=== PATIENT | female | born 1995 | race Caucasian/White ===

== ENCOUNTER 2018-04-10 15:01 | Inpatient (IN) | payer BC ==
[2018-04-10] MEDS ORDERED: Carboprost Tromethamine 250 MCG/1 ML Amp IM PRN (16:54)
[2018-04-10] MEDS ORDERED: Lidocaine 1% 50 ML MDV INJECT PRN (16:54)
[2018-04-10] MEDS ORDERED: Methylergonovine 0.2 MG/1 ML Amp IM PRN (16:54)
[2018-04-10] MEDS ORDERED: Misoprostol 200 MCG Tab PO PRN (16:54)
[2018-04-10] MEDS ORDERED: Nalbuphine 10 MG/1 ML Vial IVPUSH PRN (16:54)
[2018-04-10] MEDS ORDERED: Sodium Chloride 0.9% 2.5 ML Syringe FLUSH PRN (16:54)
[2018-04-10] MEDS ORDERED: Tranexamic Acid 1,000 MG in Sodium Chloride 0.9% 100 ML IV PRN (16:54)
[2018-04-10] MEDS ORDERED: Water For Irrigation,Sterile 1,000 ML Container IRR PRN (16:54)
[2018-04-10] MEDS ORDERED: Sodium Chloride 0.9% 10 ML Syringe FLUSH PRN (16:54)
[2018-04-10] MEDS ORDERED: Butorphanol 1 MG/ML SDV IVPUSH PRN (16:54)
[2018-04-10] MEDS ORDERED: Oxytocin/0.9 % Sodium Chloride 30 UNIT/500 ML BAG IV SCH ×2 (17:00→22:30)
[2018-04-10] MEDS: Lactated Ringers 1,000 ML IV SCH ×2 (19:30→20:15)
[2018-04-10] MEDS ORDERED: Ropivacaine 0.2% 2 MG/ML 20 ML SDV ONE (19:40)
--- NOTE | 2018-04-10 20:10 | PCM.PREANE ---
Preanesthetic Assessment - Procedure Proposed Procedure: labor epidural - Anesthesia/Transfusion/Family Hx Anesthesia History: Prior Anesthesia Without Reaction Family History of Anesthesia Reaction: No Transfusion History: No Prior Transfusion(s) - Review of Systems Other: Reports: None - Physical Assessment Height: 5 ft 4.5 in Weight: 97.522 kg Mental Status: Alert & Oriented x3 Dentition: Reports: Normal Dentition ROM/Head Extension: Full - Lab Values: Laboratory Last Values WBC 12.98 K/uL (4.0-11.0) H 04/10/18 17:26 RBC 4.30 M/uL (4.30-5.90) 04/10/18 17:26 Hgb 12.4 g/dL (12.0-16.0) 04/10/18 17:26 Hct 36.3 % (36.0-46.0) 04/10/18 17:26 MCV 84.4 fL (80.0-98.0) 04/10/18 17:26 MCH 28.8 pg (27.0-32.0) 04/10/18 17:26 MCHC 34.2 g/dL (31.0-37.0) 04/10/18 17:26 RDW Std Deviation 45.8 fl (28.0-62.0) 04/10/18 17:26 RDW Coeff of [place] 15 % (11.0-15.0) 04/10/18 17:26 Plt Count 348 K/uL (150-400) 04/10/18 17:26 MPV 10.60 fL (7.40-12.00) 04/10/18 17:26 Nucleated RBC % 0.0 /100WBC 04/10/18 17:26 Nucleated RBCs # 0 K/uL 04/10/18 17:26 Urine Color YELLOW 04/10/18 16:40 Urine Appearance CLEAR 04/10/18 16:40 Urine pH 6.0 (5.0-8.0) 04/10/18 16:40 Ur Specific [place] 1.015 (1.001-1.035) 04/10/18 16:40 Urine Protein NEGATIVE mg/dL (NEGATIVE) 04/10/18 16:40 Urine Glucose (UA) NEGATIVE mg/dL (NEGATIVE) 04/10/18 16:40 Urine Ketones NEGATIVE mg/dL (NEGATIVE) 04/10/18 16:40 Urine Occult Blood TRACE-INTACT (NEGATIVE) 04/10/18 16:40 Urine Nitrite NEGATIVE (NEGATIVE) 04/10/18 16:40 Urine Bilirubin NEGATIVE (NEGATIVE) 04/10/18 16:40 Urine Urobilinogen 0.2 EU/dL (<2.0) 04/10/18 16:40 Ur Leukocyte Esterase TRACE (NEGATIVE) 04/10/18 16:40 Blood Type A POSITIVE 04/10/18 17:26 Antibody Screen NEGATIVE 04/10/18 17:26 - Allergies Allergies/Adverse Reactions: Allergies Allergy/AdvReac Type Severity Reaction Status Date / Time amoxicillin [From Augmentin] Allergy Hives Verified 12/29/17 09:12 clavulanic acid Allergy Hives Verified 12/29/17 09:12 [From Augmentin] - Blood Blood Available: Yes Product(s) Available: PRBC - Acknowledgements Anesthesia Type Planned: Epidural Pt an Appropriate Candidate for the Planned Anesthesia: Yes Alternatives and Risks of Anesthesia Discussed w Pt/Guardian: Yes Pt/Guardian Understands and Agrees with Anesthesia Plan: Yes PreAnesthesia Questionnaire HEENT History: Reports: Impaired Vision Cardiovascular History: Reports: None Respiratory History: Reports: None Gastrointestinal History: Reports: None Genitourinary History: Reports: None 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: , 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 Musculoskeletal History: Reports: None Neurological History: Reports: None Psychiatric History: Reports: ADHD, Anxiety, Depression Endocrine/Metabolic History: Reports: None Hematologic History: Reports: None Immunologic History: Reports: None Oncologic (Cancer) History: Reports: None Dermatologic History: Reports: None - Infectious Disease History Infectious Disease History: Reports: None - Past Surgical History HEENT Surgical History: Reports: Other (See Below) Other HEENT Surgeries/Procedures: wisdom teeth extractions GI Surgical History: Reports: Appendectomy Female Surgical History: Reports: None - SUBSTANCE USE Smoking Status *Q: Former Smoker Tobacco Use Within Last Twelve Months: No Second Hand Smoke Exposure: No Recreational Drug Use History: No - HOME MEDS Home Medications: Home Meds Pnv with Ca,No.72/Iron/Fa [Pnv Plus Multivit Tab] 1 tab PO DAILY [History] busPIRone [Buspar] 5 mg PO BID 12/29/17 [History] - CURRENT (IN HOUSE) MEDS Current Meds: Current Medications Butorphanol Tartrate (Stadol) 1 mg IVPUSH Q1H PRN PRN Reason: Pain Carboprost Tromethamine (Hemabate Ds) 250 mcg IM ASDIRECTED PRN PRN Reason: Post Hemorrhage Lactated Ringer's (Ringers, Lactated) 1,000 mls @ 150 mls/hr IV ASDIRECTED DEANGELO Oxytocin/Sodium Chloride (Oxytocin 30 Unit/500 Ml-Ns) 30 unit in 500 mls @ 500 mls/hr IV TITRATE DEANGELO Tranexamic Acid 1,000 mg/ (Sodium Chloride) 110 mls @ 660 mls/hr IV ONETIME PRN PRN Reason: Bleeding Lidocaine HCl (Xylocaine 1%) 50 ml INJECT .ONCE PRN PRN Reason: Laceration repair Methylergonovine Maleate (Methergine) 0.2 mg IM ASDIRECTED PRN PRN Reason: Post Hemorrhage Misoprostol (Cytotec) 200 mcg PO .ONCE PRN PRN Reason: Post Hemorrhage Nalbuphine HCl (Nubain) 10 mg IVPUSH Q1H PRN PRN Reason: Pain (severe 7-10) Sodium Chloride (Saline Flush) 10 ml FLUSH ASDIRECTED PRN PRN Reason: Keep Vein Open Sodium Chloride (Saline Flush) 2.5 ml FLUSH ASDIRECTED PRN PRN Reason: Keep Vein Open Sterile Water (Sterile Water For Irrigation) 1,000 ml IRR ASDIRECTED PRN PRN Reason: delivery Discontinued Medications Fentanyl/Bupivacaine HCl (Qqaoasrw-Tnvcg-Xf 2 Mcg/Ml-0.125%) Confirm Administered Dose 100 mls @ as directed EP .STK-MED ONE Stop: 04/10/18 19:41 Ropivacaine (Naropin 0.2%) Confirm Administered Dose 20 ml .ROUTE .STK-MED ONE Stop: 04/10/18 19:41
[2018-04-10 23:14] LABS: CHLORIDE,CL 100 mmol/L (98-107); SODIUM,NA 135 mmol/L (136-145)
[2018-04-11] MEDS: Lactated Ringers 1,000 ML IV SCH (03:39)
[2018-04-11] MEDS ORDERED: Docusate Sodium 100 MG Cap PO PRN (06:50)
[2018-04-11] MEDS ORDERED: Witch Hazel Medicated Pads 40/Jar TOP PRN (06:50)
[2018-04-11] MEDS ORDERED: Lanolin 100% Cream 7 GM Tube TOP PRN (06:50)
[2018-04-11] MEDS ORDERED: oxyCODONE 5 MG Tab PO PRN (06:50)
[2018-04-11] MEDS ORDERED: Acetaminophen 500 MG Tab PO PRN ×2 (06:50)
[2018-04-11] MEDS ORDERED: Bisacodyl 10 MG Supp RECTAL PRN (06:50)
[2018-04-11] MEDS ORDERED: Benzocaine/Menthol 20%-0.5% Spray 78 GM Cannister TOP PRN (06:50)
[2018-04-11] MEDS ORDERED: Ibuprofen 400 MG Tab PO PRN (06:50)
--- NOTE | 2018-04-11 06:57 | PCM.DEL ---
L & D Note - General Info Date of Service: 04/11/18 Mother's Due Date: 04/10/18 - Delivery Note Labor: Augmented by Oxytocin Delivery Outcome: Livebirth Presentation: Right Occiput Anterior (TIERA) Nuchal Cord: None Anesthesia Type: Local, Epidural Anesthetic: Lidocaine (Xylocaine) 1% Plain Local Anesthetic Volume: 5cc Amniotic Fluid Description: Clear Episiotomy Type: None Laceration: 2nd Degree Suture type: Other (monocryl) Suture size: 2-0 Placenta: Intact Cord: 3 Vessels Estimated Blood Loss: 350 [place]: Suctioned Score 1 min: 9 Score 5 min: 9 Delivery Comments (Free Text/Narrative):: Live male delivered at 554am , 9/9, weight 8lb 6oz 2nd degree laceration - General Info Date of Service: 04/11/18 - Patient Data Weight - Most Recent: 97.522 kg Lab Results Last 24 Hours: Laboratory Results - last 24 hr 04/10/18 04/10/18 04/10/18 Range/Units 16:40 17:26 17:26 WBC 12.98 H (4.0-11.0) K/uL RBC 4.30 (4.30-5.90) M/uL Hgb 12.4 (12.0-16.0) g/dL Hct 36.3 (36.0-46.0) % MCV 84.4 (80.0-98.0) fL MCH 28.8 (27.0-32.0) pg MCHC 34.2 (31.0-37.0) g/dL RDW Std Deviation 45.8 (28.0-62.0) fl RDW Coeff of [place] 15 (11.0-15.0) % Plt Count 348 (150-400) K/uL MPV 10.60 (7.40-12.00) fL Nucleated RBC % 0.0 /100WBC Nucleated RBCs # 0 K/uL Sodium (136-145) mmol/L Potassium (3.5-5.1) mmol/L Chloride (98-107) mmol/L Carbon Dioxide (21.0-32.0) mmol/L BUN (7.0-18.0) mg/dL Creatinine (0.6-1.0) mg/dL Est Cr Clr Drug Dosing mL/min Estimated GFR (MDRD) ml/min Glucose (74-106) mg/dL Uric Acid (2.6-7.2) mg/dL Calcium (8.5-10.1) mg/dL Total Bilirubin (0.2-1.0) mg/dL AST (15-37) IU/L ALT (14-63) IU/L Alkaline Phosphatase (46-116) U/L Total Protein (6.4-8.2) g/dL Albumin (3.4-5.0) g/dL Globulin (2.0-3.5) g/dL Albumin/Globulin Ratio (1.3-2.8) Urine Color YELLOW Urine Appearance CLEAR Urine pH 6.0 (5.0-8.0) Ur Specific [place] 1.015 (1.001-1.035) Urine Protein NEGATIVE (NEGATIVE) mg/dL Urine Glucose (UA) NEGATIVE (NEGATIVE) mg/dL Urine Ketones NEGATIVE (NEGATIVE) mg/dL Urine Occult Blood TRACE-INTACT (NEGATIVE) Urine Nitrite NEGATIVE (NEGATIVE) Urine Bilirubin NEGATIVE (NEGATIVE) Urine Urobilinogen 0.2 (<2.0) EU/dL Ur Leukocyte Esterase TRACE (NEGATIVE) Blood Type A POSITIVE Antibody Screen NEGATIVE 04/10/18 Range/Units 22:46 WBC (4.0-11.0) K/uL RBC (4.30-5.90) M/uL Hgb (12.0-16.0) g/dL Hct (36.0-46.0) % MCV (80.0-98.0) fL MCH (27.0-32.0) pg MCHC (31.0-37.0) g/dL RDW Std Deviation (28.0-62.0) fl RDW Coeff of [place] (11.0-15.0) % Plt Count (150-400) K/uL MPV (7.40-12.00) fL Nucleated RBC % /100WBC Nucleated RBCs # K/uL Sodium 135 L (136-145) mmol/L Potassium 4.0 (3.5-5.1) mmol/L Chloride 100 (98-107) mmol/L Carbon Dioxide 22.0 (21.0-32.0) mmol/L BUN 10 (7.0-18.0) mg/dL Creatinine 0.9 (0.6-1.0) mg/dL Est Cr Clr Drug Dosing 84.25 mL/min Estimated GFR (MDRD) > 60.0 ml/min Glucose 88 (74-106) mg/dL Uric Acid 6.9 (2.6-7.2) mg/dL Calcium 9.4 (8.5-10.1) mg/dL Total Bilirubin 0.4 (0.2-1.0) mg/dL AST 26 (15-37) IU/L ALT 29 (14-63) IU/L Alkaline Phosphatase 136 H (46-116) U/L Total Protein 7.0 (6.4-8.2) g/dL Albumin 2.6 L (3.4-5.0) g/dL Globulin 4.4 H (2.0-3.5) g/dL Albumin/Globulin Ratio 0.6 L (1.3-2.8) Urine Color Urine Appearance Urine pH (5.0-8.0) Ur Specific [place] (1.001-1.035) Urine Protein (NEGATIVE) mg/dL Urine Glucose (UA) (NEGATIVE) mg/dL Urine Ketones (NEGATIVE) mg/dL Urine Occult Blood (NEGATIVE) Urine Nitrite (NEGATIVE) Urine Bilirubin (NEGATIVE) Urine Urobilinogen (<2.0) EU/dL Ur Leukocyte Esterase (NEGATIVE) Blood Type Antibody Screen Med Orders - Current: Current Medications Acetaminophen (Tylenol Extra Strength) 500 mg PO Q4H PRN PRN Reason: Pain Acetaminophen (Tylenol Extra Strength) 1,000 mg PO Q4H PRN PRN Reason: Pain Benzocaine/Menthol (Dermoplast Pain Relief 20%-0.5% [place]) 78 gm TOP ASDIRECTED PRN PRN Reason: Perineal Comfort Measure Bisacodyl (Dulcolax) 10 mg RECTAL .ONCE PRN PRN Reason: Constipation Carboprost Tromethamine (Hemabate Ds) 250 mcg IM ASDIRECTED PRN PRN Reason: Post Hemorrhage Docusate Sodium (Colace) 100 mg PO BID PRN PRN Reason: Constipation Emollient Ointment (Lansinoh Hpa) 0 gm TOP ASDIRECTED PRN PRN Reason: Sore Nipples Lactated Ringer's (Ringers, Lactated) 1,000 mls @ 150 mls/hr IV ASDIRECTED DEANGELO Last Admin: 04/11/18 03:39 Dose: 150 mls/hr Oxytocin/Sodium Chloride (Oxytocin 30 Unit/500 Ml-Ns) 30 unit in 500 mls @ 500 mls/hr IV TITRATE DEANGELO Last Admin: 04/11/18 06:26 Dose: 999 mls/hr Tranexamic Acid 1,000 mg/ (Sodium Chloride) 110 mls @ 660 mls/hr IV ONETIME PRN PRN Reason: Bleeding Oxytocin/Sodium Chloride (Oxytocin 30 Unit/500 Ml-Ns) 30 unit in 500 mls @ 2 mls/hr IV TITRATE DEANGELO; Protocol Last Infusion: 04/11/18 05:55 Dose: 999 mls/hr Ibuprofen (Motrin) 400 mg PO Q4H PRN PRN Reason: Pain Ibuprofen (Motrin) 800 mg PO Q6H PRN PRN Reason: Pain Lidocaine HCl (Xylocaine 1%) 50 ml INJECT .ONCE PRN PRN Reason: Laceration repair Last Admin: 04/11/18 06:09 Dose: 50 ml Methylergonovine Maleate (Methergine) 0.2 mg IM ASDIRECTED PRN PRN Reason: Post Hemorrhage Misoprostol (Cytotec) 200 mcg PO .ONCE PRN PRN Reason: Post Hemorrhage Oxycodone HCl (Oxycodone) 5 mg PO Q2H PRN PRN Reason: Pain Sodium Chloride (Saline Flush) 10 ml FLUSH ASDIRECTED PRN PRN Reason: Keep Vein Open Sodium Chloride (Saline Flush) 2.5 ml FLUSH ASDIRECTED PRN PRN Reason: Keep Vein Open Sterile Water (Sterile Water For Irrigation) 1,000 ml IRR ASDIRECTED PRN PRN Reason: delivery Last Admin: 04/11/18 06:09 Dose: 1,000 ml Witch Denise (Tucks) 1 pad TOP ASDIRECTED PRN PRN Reason: comfort care Discontinued Medications Butorphanol Tartrate (Stadol) 1 mg IVPUSH Q1H PRN PRN Reason: Pain Fentanyl/Bupivacaine HCl (Ylcbwvcv-Fxpjs-Jc 2 Mcg/Ml-0.125%) Confirm Administered Dose 100 mls @ as directed EP .STK-MED ONE Stop: 04/10/18 19:41 Last Admin: 04/10/18 21:19 Dose: Not Given Fentanyl/Bupivacaine HCl (Wskwsgnm-Rurxh-Ys 2 Mcg/Ml-0.125%) Confirm Administered Dose 100 mls @ as directed EP .STK-MED ONE Stop: 04/11/18 03:36 Last Admin: 04/11/18 06:23 Dose: Not Given Nalbuphine HCl (Nubain) 10 mg IVPUSH Q1H PRN PRN Reason: Pain (severe 7-10) Ropivacaine (Naropin 0.2%) Confirm Administered Dose 20 ml .ROUTE .STK-MED ONE Stop: 04/10/18 19:41 Last Admin: 04/10/18 21:19 Dose: Not Given - Problem List & Annotations (1) Vaginal delivery SNOMED Code(s): 414268024 Code(s): O80 - ENCOUNTER FOR FULL-TERM UNCOMPLICATED DELIVERY Status: Acute - Problem List Review Problem List Initiated/Reviewed/Updated: Yes - My Orders Last 24 Hours: My Active Orders 04/10/18 22:30 Oxytocin/0.9 % Sodium Chloride [Oxytocin 30 Unit/500 ML-NS] 30 unit in 500 ml IV TITRATE 04/11/18 06:50 Patient Status [ADT] Routine May Shower [RC] ASDIRECTED Up ad [place] [RC] ASDIRECTED Vital Signs [RC] PER UNIT ROUTINE Acetaminophen [Tylenol Extra Strength] 1,000 mg PO Q4H PRN Acetaminophen [Tylenol Extra Strength] 500 mg PO Q4H PRN Benzocaine/Menthol [Dermoplast Pain Relief 20%-0.5% [place]] 78 gm TOP ASDIRECTED PRN Bisacodyl [Dulcolax] 10 mg RECTAL .ONCE PRN Docusate Sodium [Colace] 100 mg PO BID PRN Ibuprofen [Motrin] 400 mg PO Q4H PRN Ibuprofen [Motrin] 800 mg PO Q6H PRN Lanolin [Lansinoh HPA] See Dose Instructions TOP ASDIRECTED PRN Witch Denise [Tucks] 1 pad TOP ASDIRECTED PRN oxyCODONE 5 mg PO Q2H PRN Assess Lochia [WOMSER] Per Unit Routine Assess Uterine Involution [WOMSER] Per Unit Routine Peripheral IV Discontinue [OM.PC] Routine Resuscitation Status Routine 04/12/18 05:11 HEMOGLOBIN/HEMATOCRIT,HH [HEME] Timed
--- NOTE | 2018-04-11 07:44 | PCM48HPAN ---
Post Anesthesia Note - EVALUATION WITHIN 48HRS OF ANESTHETIC Vital Signs in Normal Range: Yes Patient Participated in Evaluation: Yes Respiratory Function Stable: Yes Airway Patent: Yes Cardiovascular Function Stable: Yes Hydration Status Stable: Yes Pain Control Satisfactory: Yes Nausea and Vomiting Control Satisfactory: Yes Mental Status Recovered: Yes
[2018-04-11] MEDS: Ibuprofen 800 MG Tab PO PRN ×3 (10:56→22:10)
[2018-04-12] MEDS: Ibuprofen 800 MG Tab PO PRN ×2 (03:56→10:01)
--- NOTE | 2018-04-12 06:14 | OR ---
SURGEON: ADELINE STRANGE DATE OF PROCEDURE: PREOPERATIVE DIAGNOSES: A 23-year-old, G2, P0-0-1-0 at 40 weeks and 1 day, admitted in labor. POSTOPERATIVE DIAGNOSES: A 23-year-old, G2, P0-0-1-0 at 40 weeks and 1 day, admitted in labor. ESTIMATED BLOOD LOSS: 350. PROCEDURE: Normal spontaneous vaginal delivery and repair of second-degree perineal laceration. ANESTHESIA: Epidural local. FINDING: Live male , delivered at 5:54 a.m. score was 9 and 9. Weight is 8lb 6oz BRIEF HISTORY ABOUT THE PATIENT: A 23-year-old, G2, P0-0-1-0 at 40 weeks and 1 day, who came in complaining of contractions. When she came in, she was found to be 5 cm dilated. The patient made progress of labor to 7 cm,and remained the same for 2hrs , so IV Pitocin was started. With IV Pitocin started, the patient made normal labor progress and became fully dilated and she was encouraged to push. DESCRIPTION OF PROCEDURE: With the patient's good pushing effort, she delivered the head, followed by the anterior and posterior shoulder, then the infant's body. The infant was placed on the maternal abdomen. Delayed cord clamping was also observed. Cord blood gases were obtained. The placenta was then delivered via controlled cord traction. After delivery of the placenta, bimanual massage was done. Hemostasis was noted. The perineum was inspected. A second-degree left labial laceration was noted. The laceration was then infiltrated with 1% lidocaine and sutured with 2-0 Monocryl. The perineum was inspected again and hemostasis was noted. All instrument and pad count were correct x2. The patient tolerated the procedure well and was left in the labor and delivery room in stable condition. JACKIE DICKERSON /[id number] ARNAUD
--- NOTE | 2018-04-12 07:16 | PCM.PNPP ---
<Jeri Griffin - Last Filed: 04/12/18 07:52> - General Info Date of Service: 04/12/18 Subjective Update: 23 year old PPD#1 from vaginal delivery. Mild headache last night that has since resolved. Functional Status: Reports: Pain Controlled, Tolerating Diet, Ambulating, Urinating - Review of Systems General: Denies: Fever, Chills HEENT: Denies: Headaches, Visual Changes Pulmonary: Denies: Shortness of Breath, Pleuritic Chest Pain, Cough Cardiovascular: Denies: Chest Pain, Edema Gastrointestinal: Denies: Constipation, Diarrhea, Nausea, Vomiting Genitourinary: Denies: Dysuria, Frequency, Burning Musculoskeletal: Denies: Leg Pain Neurological: Denies: Dizziness, Headache - General Info Date of Service: 04/12/18 - Patient Data Vital Signs - Most Recent: Last Vital Signs Temp 36.7 C 04/12/18 05:00 Pulse 87 04/12/18 05:00 Resp 16 04/12/18 05:00 BP 115/79 04/12/18 05:00 Pulse Ox 97 04/12/18 05:00 Weight - Most Recent: 97.522 kg Lab Results - Last 24 Hours: Laboratory Results - last 24 hr 04/12/18 Range/Units 05:16 Hgb 9.4 L (12.0-16.0) g/dL Hct 28.1 L (36.0-46.0) % Med Orders - Current: Current Medications Acetaminophen (Tylenol Extra Strength) 500 mg PO Q4H PRN PRN Reason: Pain Last Admin: 04/11/18 19:39 Dose: 500 mg Acetaminophen (Tylenol Extra Strength) 1,000 mg PO Q4H PRN PRN Reason: Pain Benzocaine/Menthol (Dermoplast Pain Relief 20%-0.5% [place]) 78 gm TOP ASDIRECTED PRN PRN Reason: Perineal Comfort Measure Last Admin: 04/11/18 11:29 Dose: 78 gm Bisacodyl (Dulcolax) 10 mg RECTAL .ONCE PRN PRN Reason: Constipation Carboprost Tromethamine (Hemabate Ds) 250 mcg IM ASDIRECTED PRN PRN Reason: Post Hemorrhage Docusate Sodium (Colace) 100 mg PO BID PRN PRN Reason: Constipation Emollient Ointment (Lansinoh Hpa) 0 gm TOP ASDIRECTED PRN PRN Reason: Sore Nipples Last Admin: 04/11/18 11:27 Dose: 1 tube Lactated Ringer's (Ringers, Lactated) 1,000 mls @ 150 mls/hr IV ASDIRECTED DEANGELO Last Admin: 04/11/18 03:39 Dose: 150 mls/hr Oxytocin/Sodium Chloride (Oxytocin 30 Unit/500 Ml-Ns) 30 unit in 500 mls @ 500 mls/hr IV TITRATE DEANGELO Last Admin: 04/11/18 06:26 Dose: 999 mls/hr Tranexamic Acid 1,000 mg/ (Sodium Chloride) 110 mls @ 660 mls/hr IV ONETIME PRN PRN Reason: Bleeding Oxytocin/Sodium Chloride (Oxytocin 30 Unit/500 Ml-Ns) 30 unit in 500 mls @ 2 mls/hr IV TITRATE DEANGELO; Protocol Last Infusion: 04/11/18 05:55 Dose: 999 mls/hr Ibuprofen (Motrin) 400 mg PO Q4H PRN PRN Reason: Pain Ibuprofen (Motrin) 800 mg PO Q6H PRN PRN Reason: Pain Last Admin: 04/12/18 03:56 Dose: 800 mg Lidocaine HCl (Xylocaine 1%) 50 ml INJECT .ONCE PRN PRN Reason: Laceration repair Last Admin: 04/11/18 06:09 Dose: 50 ml Methylergonovine Maleate (Methergine) 0.2 mg IM ASDIRECTED PRN PRN Reason: Post Hemorrhage Misoprostol (Cytotec) 200 mcg PO .ONCE PRN PRN Reason: Post Hemorrhage Oxycodone HCl (Oxycodone) 5 mg PO Q2H PRN PRN Reason: Pain Sodium Chloride (Saline Flush) 10 ml FLUSH ASDIRECTED PRN PRN Reason: Keep Vein Open Sodium Chloride (Saline Flush) 2.5 ml FLUSH ASDIRECTED PRN PRN Reason: Keep Vein Open Sterile Water (Sterile Water For Irrigation) 1,000 ml IRR ASDIRECTED PRN PRN Reason: delivery Last Admin: 04/11/18 06:09 Dose: 1,000 ml Witch Denise (Tucks) 1 pad TOP ASDIRECTED PRN PRN Reason: comfort care Last Admin: 04/11/18 11:28 Dose: 1 pad Discontinued Medications Butorphanol Tartrate (Stadol) 1 mg IVPUSH Q1H PRN PRN Reason: Pain Fentanyl/Bupivacaine HCl (Bjieduuj-Wpeom-Py 2 Mcg/Ml-0.125%) Confirm Administered Dose 100 mls @ as directed EP .STK-MED ONE Stop: 04/10/18 19:41 Last Admin: 04/10/18 21:19 Dose: Not Given Fentanyl/Bupivacaine HCl (Ymzyomia-Cvpdm-Ae 2 Mcg/Ml-0.125%) Confirm Administered Dose 100 mls @ as directed EP .STK-MED ONE Stop: 04/11/18 03:36 Last Admin: 04/11/18 06:23 Dose: Not Given Nalbuphine HCl (Nubain) 10 mg IVPUSH Q1H PRN PRN Reason: Pain (severe 7-10) Ropivacaine (Naropin 0.2%) Confirm Administered Dose 20 ml .ROUTE .STK-MED ONE Stop: 04/10/18 19:41 Last Admin: 04/10/18 21:19 Dose: Not Given - Interaction Disposition, : Henry in Room with Family Infant Interaction: Holding Infant Feeding: Breastfed Infant; Nursed Well Support Person: - Recovery Exam Fundal Tone: Firm Fundal Level: 1 Fingerbreadths Below Umbilicus Fundal Placement: Midline Lochia Amount: Scant Lochia Color: Rubra/Red Perineum Description: Intact, Minimal Bruising/Swelling Episiotomy/Laceration: Approximated Bladder Status: Voiding Urinary Elimination: Voided - Exam General: Alert, Oriented, No Acute Distress HEENT: Pupils Equal, Pupils Reactive Lungs: Clear to Auscultation, Normal Respiratory Effort. No: Wheezing Cardiovascular: Regular Rate, Regular Rhythm, No Murmurs GI/Abdominal Exam: Normal Bowel Sounds, Soft, No Distention, No Mass. No: Guarding, Rebound Extremities: Normal Inspection, Normal Range of Motion, Non-Tender, No Pedal Edema, Normal Capillary Refill Skin: Warm, Dry, Intact Wound/Incisions: Healing Well Neurological: No New Focal Deficit Psy/Mental Status: Alert, Normal Affect, Normal Mood - Problem List Review Problem List Initiated/Reviewed/Updated: Yes - Assessment Assessment:: 23 year old PPD#1 s/p vaginal delivery. Recovering appropriately. - Plan Plan:: Discharge today Pain meds: acetaminophen, ibuprofen Followup: 6 weeks in clinic <Gabriela Ward - Last Filed: 04/12/18 08:16> - Patient Data Vital Signs - Most Recent: Last Vital Signs Temp 36.7 C 04/12/18 05:00 Pulse 87 04/12/18 05:00 Resp 16 04/12/18 05:00 BP 115/79 04/12/18 05:00 Pulse Ox 97 04/12/18 05:00 Lab Results - Last 24 Hours: Laboratory Results - last 24 hr 04/12/18 Range/Units 05:16 Hgb 9.4 L (12.0-16.0) g/dL Hct 28.1 L (36.0-46.0) % Med Orders - Current: Current Medications Acetaminophen (Tylenol Extra Strength) 500 mg PO Q4H PRN PRN Reason: Pain Last Admin: 04/11/18 19:39 Dose: 500 mg Acetaminophen (Tylenol Extra Strength) 1,000 mg PO Q4H PRN PRN Reason: Pain Benzocaine/Menthol (Dermoplast Pain Relief 20%-0.5% [place]) 78 gm TOP ASDIRECTED PRN PRN Reason: Perineal Comfort Measure Last Admin: 04/11/18 11:29 Dose: 78 gm Bisacodyl (Dulcolax) 10 mg RECTAL .ONCE PRN PRN Reason: Constipation Carboprost Tromethamine (Hemabate Ds) 250 mcg IM ASDIRECTED PRN PRN Reason: Post Hemorrhage Docusate Sodium (Colace) 100 mg PO BID PRN PRN Reason: Constipation Emollient Ointment (Lansinoh Hpa) 0 gm TOP ASDIRECTED PRN PRN Reason: Sore Nipples Last Admin: 04/11/18 11:27 Dose: 1 tube Lactated Ringer's (Ringers, Lactated) 1,000 mls @ 150 mls/hr IV ASDIRECTED DEANGELO Last Admin: 04/11/18 03:39 Dose: 150 mls/hr Oxytocin/Sodium Chloride (Oxytocin 30 Unit/500 Ml-Ns) 30 unit in 500 mls @ 500 mls/hr IV TITRATE DEANGELO Last Admin: 04/11/18 06:26 Dose: 999 mls/hr Tranexamic Acid 1,000 mg/ (Sodium Chloride) 110 mls @ 660 mls/hr IV ONETIME PRN PRN Reason: Bleeding Oxytocin/Sodium Chloride (Oxytocin 30 Unit/500 Ml-Ns) 30 unit in 500 mls @ 2 mls/hr IV TITRATE DEANGELO; Protocol Last Infusion: 04/11/18 05:55 Dose: 999 mls/hr Ibuprofen (Motrin) 400 mg PO Q4H PRN PRN Reason: Pain Ibuprofen (Motrin) 800 mg PO Q6H PRN PRN Reason: Pain Last Admin: 04/12/18 03:56 Dose: 800 mg Lidocaine HCl (Xylocaine 1%) 50 ml INJECT .ONCE PRN PRN Reason: Laceration repair Last Admin: 04/11/18 06:09 Dose: 50 ml Methylergonovine Maleate (Methergine) 0.2 mg IM ASDIRECTED PRN PRN Reason: Post Hemorrhage Misoprostol (Cytotec) 200 mcg PO .ONCE PRN PRN Reason: Post Hemorrhage Oxycodone HCl (Oxycodone) 5 mg PO Q2H PRN PRN Reason: Pain Sodium Chloride (Saline Flush) 10 ml FLUSH ASDIRECTED PRN PRN Reason: Keep Vein Open Sodium Chloride (Saline Flush) 2.5 ml FLUSH ASDIRECTED PRN PRN Reason: Keep Vein Open Sterile Water (Sterile Water For Irrigation) 1,000 ml IRR ASDIRECTED PRN PRN Reason: delivery Last Admin: 04/11/18 06:09 Dose: 1,000 ml Witch Denise (Tucks) 1 pad TOP ASDIRECTED PRN PRN Reason: comfort care Last Admin: 04/11/18 11:28 Dose: 1 pad Discontinued Medications Butorphanol Tartrate (Stadol) 1 mg IVPUSH Q1H PRN PRN Reason: Pain Fentanyl/Bupivacaine HCl (Csnakbkh-Uypgm-Sl 2 Mcg/Ml-0.125%) Confirm Administered Dose 100 mls @ as directed EP .STK-MED ONE Stop: 04/10/18 19:41 Last Admin: 04/10/18 21:19 Dose: Not Given Fentanyl/Bupivacaine HCl (Lrordayx-Idwun-Mm 2 Mcg/Ml-0.125%) Confirm Administered Dose 100 mls @ as directed EP .STK-MED ONE Stop: 04/11/18 03:36 Last Admin: 08/09/18 06:23 Dose: Not Given Nalbuphine HCl (Nubain) 10 mg IVPUSH Q1H PRN PRN Reason: Pain (severe 7-10) Ropivacaine (Naropin 0.2%) Confirm Administered Dose 20 ml .ROUTE .STK-MED ONE Stop: 04/10/18 19:41 Last Admin: 04/10/18 21:19 Dose: Not Given - Plan Plan:: Patient seen and examined--agree with above. Discharge to home today. Infection and bleeding warnings reviewed. Follow up at [facility] 6 weeks.
== END 2018-04-12 12:45 | disposition home or self-care (01) | DRG 560 ==
LOC: MW.OBCHECK 15:01 → MW.OB 16:01 → MW.OBCHECK 16:54 → MW.OB 18:56 → OBSVTOIN 04-11 05:54 → MW.OB 04-11 13:27
PROVIDERS: ADMIT Obstetrics & Gynecology; ATTEND Obstetrics & Gynecology
PROC: 10E0XZZ Delivery of Products of Conception, External Approach (ICD-10-PCS; principal; 2018-04-11)
PROC: 0KQM0ZZ Repair Perineum Muscle, Open Approach (ICD-10-PCS; 2018-04-11)
PROC: 3E0S3GC Introduction of Other Therapeutic Substance into Epidural Space, Percutaneous Approach (ICD-10-PCS; 2018-04-11)
DX: O70.1 Second degree perineal laceration during delivery (principal); Z3A.40 40 weeks gestation of pregnancy; Z37.0 Single live birth
CPT/HCPCS: 36415; 51702; 59025; 59409; 80053; 81003; 84550; 85014; 85018; 85027; 86850; 86900; 86901; A9270-GY; J2590; J2795; J7120

== ENCOUNTER 2019-08-03 11:49 | Emergency (ER) | payer OTHER ==
--- NOTE | 2019-08-03 12:12 | EDM.PDOC ---
ED HPI GENERAL MEDICAL PROBLEM - General Chief Complaint: General Stated Complaint: POSSIBLE SINUS INFECTION Time Seen by Provider: 08/03/19 11:54 Source of Information: Reports: Patient History Limitations: Reports: No Limitations - History of Present Illness INITIAL COMMENTS - FREE TEXT/NARRATIVE: HISTORY AND PHYSICAL: History of present illness: Patient is a 24-year-old female who presents to the emergency room with complaints of sinus pain and pressure that radiates into her ears, jaw and throat. Patient has had subjective fever and chills although has not actually taken her temperature. Patient denies any headache, change in vision, syncope or near syncope. Denies any chest pain, back pain, shortness of breath or cough. Denies any GI or symptoms. Patient has been eating and drinking appropriately. Review of systems: As per history of present illness and below otherwise all systems reviewed and negative. Past medical history: As per history of present illness and as reviewed below otherwise noncontributory. Surgical history: As per history of present illness and as reviewed below otherwise noncontributory. Social history: See social history for further information Family history: As per history of present illness and as reviewed below otherwise noncontributory. Physical exam: General: Well-developed and well-nourished 24 she'll female. Alert and oriented. Nontoxic appearing and in no acute distress. HEENT: Atraumatic, normocephalic, pupils equal and reactive bilaterally, negative for conjunctival pallor or scleral icterus, mucous membranes moist, frontal and maxillary sinus tenderness bilaterally, TMs normal bilaterally, throat erythematous without exudate, neck supple, nontender, trachea midline. No drooling or trismus noted. No meningeal signs. No hot potato voice noted. Lungs: Clear to auscultation, breath sounds equal bilaterally, chest nontender. Heart: S1S2, regular rate and rhythm without overt murmur Abdomen: Soft, nondistended, nontender. Negative for masses or hepatosplenomegaly. Negative for costovertebral tenderness. Pelvis: Stable nontender. Skin: Intact, warm, dry. No lesions or rashes noted. Extremities: Atraumatic, moves all extremities per self without difficulty or deficits, negative for cords or calf pain. Neurovascular unremarkable. Neuro: Awake, alert, oriented. Cranial nerves II through XII unremarkable. Cerebellum unremarkable. Motor and sensory unremarkable throughout. Exam nonfocal. Diagnostics: None Therapeutics: None Prescription: Clindamycin Impression: Sinusitis Plan: 1. Take your medication as directed. Good handwashing and contact precautions as we discussed. 2. Warm Salt water gargles (rinse and spit) 3-4 x daily. Please get a new tooth brush after completion of your medication 3. Tylenol and or ibuprofen as needed for pain management. 4. Follow-up with your primary care provider in the next 1-2 days. Return to the ED as needed and as discussed. Definitive disposition and diagnosis as appropriate pending reevaluation and review of above. sinus/jaw Pain Score (Numeric/FACES): 7 - Related Data Allergies Allergy/AdvReac Type Severity Reaction Status Date / Time amoxicillin [From Augmentin] Allergy Hives Verified 12/29/17 09:12 clavulanic acid Allergy Hives Verified 12/29/17 09:12 [From Augmentin] Home Meds: Home Meds Clindamycin HCl 300 mg PO TID 10 Days #30 capsule 08/03/19 [Rx] Diclofenac Sodium [Voltaren] 75 mg PO BIDMEALS PRN #20 tab.cr 08/03/19 [Rx] Past Medical History HEENT History: Reports: Impaired Vision Cardiovascular History: Reports: None Respiratory History: Reports: None Gastrointestinal History: Reports: None Genitourinary History: Reports: None 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: , 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 Musculoskeletal History: Reports: None Neurological History: Reports: None Psychiatric History: Reports: ADHD, Anxiety, Depression Endocrine/Metabolic History: Reports: None Hematologic History: Reports: None Immunologic History: Reports: None Oncologic (Cancer) History: Reports: None Dermatologic History: Reports: None - Infectious Disease History Infectious Disease History: Reports: None - Past Surgical History HEENT Surgical History: Reports: Other (See Below) Other HEENT Surgeries/Procedures: wisdom teeth extractions GI Surgical History: Reports: Appendectomy Female Surgical History: Reports: None Social & Family History - Family History HEENT: Reports: None Cardiac: Reports: High Cholesterol, Hypertension, Stent Respiratory: Reports: None GI: Reports: None : Reports: None OBGYN: Reports: Musculoskeletal: Reports: Arthritis Neurological: Reports: CVA Psychiatric: Reports: Anxiety, Depression, Panic Attack Endocrine/Metabolic: Reports: Diabetes, Type I Hematologic: Reports: None Immunologic: Reports: None Dermatologic: Reports: None Oncologic: Reports: Breast, Skin - Tobacco Use Smoking Status *Q: Never Smoker - Caffeine Use Caffeine Use: Reports: Tea - Recreational Drug Use Recreational Drug Use: No ED ROS GENERAL - Review of Systems Review Of Systems: Comprehensive ROS is negative, except as noted in HPI. ED EXAM, GENERAL - Physical Exam Exam: See Below (See dictation) Course - Vital Signs Last Recorded V/S: Last Vital Signs Temp 98.5 F 08/03/19 11:55 Pulse 90 08/03/19 11:55 Resp 16 08/03/19 11:55 BP 140/89 08/03/19 11:55 Pulse Ox 99 08/03/19 11:55 Departure - Departure Time of Disposition: 12:11 Disposition: Home, Self-Care 01 Clinical Impression: Sinusitis Qualifiers: Sinusitis location: maxillary Chronicity: acute Recurrence: non-recurrent Qualified Code(s): J01.00 - Acute maxillary sinusitis, unspecified - Discharge Information Prescriptions: Clindamycin HCl 300 mg PO TID 10 Days #30 capsule Diclofenac Sodium [Voltaren] 75 mg PO BIDMEALS PRN #20 tab.cr PRN Reason: Pain Instructions: Sinusitis, Adult Referrals: PCP,None [Primary Care Provider] - Forms: ED Department Discharge Additional Instructions: The following information is given to patients seen in the emergency department who are being discharged to home. This information is to outline your options for follow-up care. We provide all patients seen in our emergency department with a follow-up referral. The need for follow-up, as well as the timing and circumstances, are variable depending upon the specifics of your emergency department visit. If you don't have a primary care physician on staff, we will provide you with a referral. We always advise you to contact your personal physician following an emergency department visit to inform them of the circumstance of the visit and for follow-up with them and/or the need for any referrals to a consulting specialist. The emergency department will also refer you to a specialist when appropriate. This referral assures that you have the opportunity for follow-up care with a specialist. All of these measure are taken in an effort to provide you with optimal care, which includes your follow-up. Under all circumstances we always encourage you to contact your private physician who remains a resource for coordinating your care. When calling for follow-up care, please make the office aware that this follow-up is from your recent emergency room visit. If for any reason you are refused follow-up, please contact the [facility] Emergency Department at and asked to speak to the emergency department charge nurse. [facility] Primary [facility] [id number], [place] [address] [id number] 1. Take your medication as directed. Good handwashing and contact precautions as we discussed. 2. Warm Salt water gargles (rinse and spit) 3-4 x daily. Please get a new tooth brush after completion of your medication 3. Tylenol and prescribed Diclofenac as needed for pain management. Take with food 4. Follow-up with your primary care provider in the next 1-2 days. Return to the ED as needed and as discussed.
== END 2019-08-03 16:50 | disposition home or self-care (01) ==
LOC: MW.ED 11:49
DX: J01.00 Acute maxillary sinusitis, unspecified (principal); Z88.1 Allergy status to other antibiotic agents
CPT/HCPCS: 99283

== ENCOUNTER 2022-09-30 20:24 | Inpatient (IN) | payer OTHER ==
[2022-09-30] MEDS ORDERED: Misoprostol 200 MCG Tab PO PRN (22:29)
[2022-09-30] MEDS ORDERED: Sodium Chloride 0.9% 20 ML SDV IV PRN (22:29)
[2022-09-30] MEDS ORDERED: Misoprostol 25 MCG (1/4 of 100 MCG) Tab VAG PRN ×2 (22:29)
[2022-09-30] MEDS ORDERED: Ondansetron 4 MG/2 ML SDV IVPUSH PRN (22:29)
[2022-09-30] MEDS ORDERED: Water For Irrigation,Sterile 1,000 ML Container IRR PRN (22:29)
[2022-09-30] MEDS ORDERED: Terbutaline 1 MG/ML SDV SUBCUT PRN (22:29)
[2022-09-30] MEDS ORDERED: Methylergonovine 0.2 MG/1 ML Amp IM PRN (22:29)
[2022-09-30] MEDS ORDERED: Carboprost Tromethamine 250 MCG/1 ML Amp IM PRN (22:29)
[2022-09-30] MEDS ORDERED: Sodium Chloride 0.9% 2.5 ML Syringe FLUSH PRN (22:29)
[2022-09-30] MEDS ORDERED: Lidocaine 1% 50 ML MDV INJECT PRN (22:29)
[2022-09-30] MEDS ORDERED: Tranexamic Acid 1,000 MG in Sodium Chloride 0.9% 100 ML IV PRN (22:29)
[2022-09-30] MEDS ORDERED: Sodium Chloride 0.9% 10 ML Syringe FLUSH PRN (22:29)
[2022-09-30] MEDS ORDERED: Butorphanol 1 MG/ML SDV IVPUSH PRN (22:29)
[2022-09-30] MEDS ORDERED: Oxytocin/0.9 % Sodium Chloride 30 UNIT/500 ML BAG IV SCH ×2 (22:30)
[2022-09-30] MEDS: Lactated Ringers 1,000 ML IV SCH (23:50)
[2022-10-01 00:08] LABS: CARBON DIOXIDE,CO2 21.8 mmol/L (21.0-32.0)
[2022-10-01] MEDS: Lactated Ringers 1,000 ML IV SCH ×2 (05:09→13:00)
[2022-10-01] MEDS ORDERED: Ropivacaine/PF 400 MG/200 ML PCA ONE (10:31)
[2022-10-01] MEDS ORDERED: Phenylephrine HCl In 0.9% NaCl 1 MG/10 ML Vial IVPUSH PRN (11:14)
[2022-10-01] MEDS ORDERED: ePHEDrine 50 MG/ML SDV IVPUSH PRN (11:14)
[2022-10-01] MEDS ORDERED: Ropivacaine HCl/PF 400 MG in Premix Bag 1 BAG EPIDUR SCH (11:15)
[2022-10-01] MEDS ORDERED: Acetaminophen 500 MG Tab PO PRN (13:57)
[2022-10-01] MEDS ORDERED: Bisacodyl 10 MG Supp RECTAL PRN (13:57)
[2022-10-01] MEDS ORDERED: oxyCODONE 5 MG Tab PO PRN (13:57)
[2022-10-01] MEDS ORDERED: Witch Hazel Medicated Pads 40/Jar TOP PRN (13:57)
[2022-10-01] MEDS ORDERED: Docusate Sodium 100 MG Cap PO PRN (13:57)
[2022-10-01] MEDS ORDERED: Ibuprofen 400 MG Tab PO PRN (13:57)
[2022-10-01] MEDS ORDERED: Lanolin 100% Cream 7 GM Tube TOP PRN (13:57)
[2022-10-01] MEDS ORDERED: Benzocaine/Menthol 20%-0.5% Spray 78 GM Cannister TOP PRN (13:57)
[2022-10-01] MEDS ORDERED: ceFAZolin 2 GM in Sodium Chloride 0.9% 50 ML IV ONE (14:01)
[2022-10-01] MEDS: Ibuprofen 800 MG Tab PO PRN (14:31)
[2022-10-01] MEDS: Acetaminophen 500 MG Tab PO PRN ×2 (14:33→19:48)
[2022-10-01] MEDS: ceFAZolin 1 GM in Premix Bag 1 BAG IV SCH (22:23)
[2022-10-02] MEDS: Ibuprofen 800 MG Tab PO PRN (02:24)
[2022-10-02] MEDS: Acetaminophen 500 MG Tab PO PRN (06:12)
[2022-10-02] MEDS: ceFAZolin 1 GM in Premix Bag 1 BAG IV SCH (06:13)
== END 2022-10-02 15:45 | disposition home or self-care (01) | DRG 807 ==
LOC: MW.OBCHECK 20:24 → MW.OB 20:25 → MW.OBCHECK 22:20 → MW.OB 22:22 → OBSVTOIN 10-01 13:12 → MW.OB 10-01 18:35
PROVIDERS: ADMIT Obstetrics & Gynecology; ATTEND Obstetrics & Gynecology
PROC: 10E0XZZ Delivery of Products of Conception, External Approach (ICD-10-PCS; principal; 2022-10-01)
PROC: 10D17Z9 Manual Extraction of Products of Conception, Retained, Via Natural or Artificial Opening (ICD-10-PCS; 2022-10-01)
PROC: 10907ZC Drainage of Amniotic Fluid, Therapeutic from Products of Conception, Via Natural or Artificial Opening (ICD-10-PCS; 2022-10-01)
PROC: 3E0P7VZ Introduction of Hormone into Female Reproductive, Via Natural or Artificial Opening (ICD-10-PCS; 2022-10-01)
PROC: 3E0R3BZ Introduction of Anesthetic Agent into Spinal Canal, Percutaneous Approach (ICD-10-PCS; 2022-10-01)
PROC: 00HU33Z Insertion of Infusion Device into Spinal Canal, Percutaneous Approach (ICD-10-PCS; 2022-10-01)
DX: O36.8132 Decreased fetal movements, third trimester, fetus 2 (principal); Z37.2 Twins, both liveborn; O30.043 Twin pregnancy, dichorionic/diamniotic, third trimester; O14.04 Mild to moderate pre-eclampsia, complicating childbirth; Z20.822 Contact with and (suspected) exposure to COVID-19; Z3A.37 37 weeks gestation of pregnancy
CPT/HCPCS: 36415; 51702; 59025; 59409; 80053; 81001; 82803; 85014; 85018; 85027; 86592; 86850; 86900; 86901; A9270-GY; J0690; J2590; J2795; J7050; J7120; U0002

== ENCOUNTER 2023-01-16 06:45 | Day surgery (SDC) | payer BC, OTHER ==
[~2023-01-16 06:45] MED LIST: Lactated Ringers 1,000 ML IV SCH; Sodium Chloride 0.9% 10 ML Syringe FLUSH PRN; Sodium Chloride 0.9% 2.5 ML Syringe FLUSH PRN; Sodium Chloride 0.9% 20 ML SDV IV PRN; ceFAZolin 2 GM in Sodium Chloride 0.9% 50 ML IV ONE
[2023-01-16] MEDS ORDERED: Metoclopramide 10 MG/2 ML SDV IVPUSH PRN (06:57)
[2023-01-16] MEDS ORDERED: droPERidol 5 MG/2 ML SDV IVPUSH PRN (06:57)
[2023-01-16] MEDS ORDERED: HYDROmorphone 1 MG/ML Syringe IVPUSH PRN (06:57)
[2023-01-16] MEDS ORDERED: Morphine 2 MG/ML SYRINGE IVPUSH PRN (06:57)
[2023-01-16] MEDS ORDERED: Naloxone 0.4 MG/ML SDV IVPUSH PRN (06:57)
[2023-01-16] MEDS ORDERED: Ondansetron 4 MG/2 ML SDV IVPUSH PRN (06:57)
[2023-01-16] MEDS ORDERED: fentaNYL 50 MCG/ML SDV IVPUSH PRN (06:57)
[2023-01-16] MEDS ORDERED: Albuterol 0.083% 2.5 MG/3 ML Neb Soln NEB PRN (06:57)
[2023-01-16] MEDS ORDERED: Famotidine 20 MG/2 ML SDV ONE (07:19)
[2023-01-16] MEDS ORDERED: Ropivacaine 0.5% 5 MG/ML 30 ML SDV ONE (07:19)
[2023-01-16] MEDS ORDERED: propofoL 50 ML ONE ×2 (07:20→08:45)
[2023-01-16] MEDS ORDERED: fentaNYL 100 MCG/2 ML SDV ONE (07:21)
[2023-01-16] MEDS ORDERED: Morphine Sulfate 10mg/ml SDV ONE (07:21)
[2023-01-16] MEDS ORDERED: Propofol 200 MG/20 ML SDV ONE (07:21)
[2023-01-16] MEDS ORDERED: Bupivacaine 0.5% 30 ML SDV ONE (07:42)
[2023-01-16] MEDS ORDERED: fentaNYL 250 MCG/5 ML SDV ONE (08:16)
[2023-01-16 09:03] LABS: A/G RATIO 0.9 (0.9-1.6); ALBUMIN 3.2 g/dL (3.4-5.0); BILIRUBIN TOTAL 0.6 mg/dL (0.2-1.0); CALCIUM 8.4 mg/dL (8.5-10.1); CARBON DIOXIDE,CO2 28.5 mmol/L (21.0-32.0); CREATININE 1.1 mg/dL (0.6-1.0); EST CRCL DRUG DOSING (CG) 65.16 mL/min; POTASSIUM,K 3.8 mmol/L (3.5-5.1); PROTEIN TOTAL,TP 6.9 g/dL (6.4-8.2)
[2023-01-16 09:06] LABS: MEAN CORPUSCULAR HEMOGLOBIN 28.7 pg (27.0-32.0); MEAN CORPUSCULAR HGB CONC 33.3 g/dL (31.0-37.0); MEAN CORPUSCULAR VOLUME 86.2 fL (80.0-98.0); PLATELET COUNT,PLT 306 K/uL (150-400); RED BLOOD CELL COUNT 3.83 M/uL (4.30-5.90)
[2023-01-16] MEDS ORDERED: Ondansetron 4 MG/2 ML SDV ONE (09:27)
[2023-01-16] MEDS ORDERED: Ketorolac 30 MG/ML SDV ONE (09:27)
[2023-01-16] MEDS ORDERED: Dexamethasone 4 MG/ML 5 ML MDV ONE (09:27)
[2023-01-16] MEDS ORDERED: Rocuronium Bromide 50 MG/5 ML Syringe ONE (09:27)
[2023-01-16] MEDS ORDERED: Sugammadex Sodium 200 MG/2 ML VIAL ONE (09:27)
[2023-01-16] MEDS ORDERED: Glycopyrrolate 0.2 MG/ML SDV ONE (09:37)
== END 2023-01-16 13:35 | disposition home or self-care (01) ==
LOC: MW.SDS 06:45
PROVIDERS: ATTEND Surgery
DX: K80.12 Calculus of gallbladder with acute and chronic cholecystitis without obstruction (principal); F41.9 Anxiety disorder, unspecified; F32.A Depression, unspecified; Z90.49 Acquired absence of other specified parts of digestive tract; Z88.0 Allergy status to penicillin; Z88.1 Allergy status to other antibiotic agents; Z79.899 Other long term (current) drug therapy
CPT/HCPCS: 36415; 47562; 80053; 81025; 85027; J0131; J1100; J1885; J2270; J2405; J2704; J2795; J3010; J3490; J7030; J7120; 00790; 64488